=== PATIENT | female | born 1950 | race Caucasian/White ===

== ENCOUNTER 2017-02-25 16:03 | Inpatient (IN) | payer OTHER ==
--- NOTE | ~2017-02-25 | HP ---
History And Physical [address] [place]. [address] NAME: IVANIA GONZALEZ : 48 STATUS : ADM IN [facility]#: [id number] AGE: 66 ADM/REG DATE : 02/25/17 MR#: [id number] REPORT SERV DATE: 02/25/17 DICTATED BY: BERNARDA COMBS DATE: 02/25/17 REPORT STATUS : Draft TRANSCRIBED BY: MODL DATE: 02/25/17 DATE OF ADMISSION: 02/25/2017 HISTORY OF PRESENT ILLNESS: This is a 66-year-old woman with a known history of cardiac disease, who was complaining of an increased heart rate according to her . She was standing at the kitchen counter. He took her blood pressure and reports that it was high, he thinks maybe as high as 199, but is not sure, noticed increased heart rate. The patient slid to the floor and bumped her head against the wall and was unresponsive. CPR was started by the family and went on for at least 20 minutes. EMS was called and continued CPR en route to the hospital. According to the family, she was shocked at least 3 times by EMS. Further shocks were delivered en route to the hospital. Apparently, the patient got a total of 8 mg of epinephrine, 1 mg of atropine, and 1 amp of bicarbonate while en route to the hospital. She had a return of circulation upon arrival to the ER, was given a 2-litre normal saline bolus, 450 mg of amiodarone were given as per EMS. The patient was intubated en route with a 7.5 endotracheal tube. [facility] in [facility], the patient was started on an epinephrine drip, given two more amps of bicarbonate. Fentanyl 50 mcg was given. She was started on Protonix secondary to bloody nasogastric secretions, 300 mg of aspirin was given. The patient was also started on propofol. She was then transferred here for further evaluation, possible hypothermia protocol, and evaluation by Cardiology. ALLERGIES: THE PATIENT HAS NO KNOWN DRUG ALLERGIES. HOME MEDICATIONS: Include metoprolol 12.5 mg 3 times a day, ramipril 10 mg daily, and hydrochlorothiazide 12.5 mg daily. PAST MEDICAL HISTORY: Significant for: 1. Acute inferior wall CO in 2011 and was treated with urgent PCI. At that time, she was stented to the proximal RCA. 2. Perfusion scan done in 2013 in [facility] was negative for ischemia. 3. In 2014, the patient again was taken to the metallurgical laboratory assistant for acute coronary syndrome. At that time, she was found to have a widely patent stent, nonobstructive coronary artery disease, and a normal left ventricular function. 4. She underwent cholecystectomy in 2015. 5. She has a history of obesity. 6. Breast reduction surgery. 7. Hypertension. SOCIAL HISTORY: The patient is retired from [employer]. She is a heavy smoker and has been smoking for greater than 50 years, at least two packs a day if not more. The patient has no history of alcohol abuse. She lives at home with her family. She has four sons and grandchildren and her is still living. FAMILY HISTORY: Significant for coronary artery disease and diabetes in her father, and her mother had a cerebrovascular accident. History And Physical [address] [address] NAME: IVANIA GONZALEZ : [birth year] STATUS : ADM IN [facility]#: [id number] AGE: 66 ADM/REG DATE : 02/25/17 MR#: [id number] REPORT SERV DATE: 02/25/17 DICTATED BY: BERNARDA COMBS DATE: 02/25/17 REPORT STATUS : Draft TRANSCRIBED BY: CORIN DATE: 02/25/17 REVIEW OF SYSTEMS: Could not be obtained from the patient since she is orally intubated, sedated, and unresponsive. PHYSICAL EXAMINATION: VITAL SIGNS: Upon arrival, heart rate was 114. Blood pressure initially was not able to be obtained; currently, it is 167/90 on epinephrine. Respiratory rate is 26 on settings, tidal volume of 550, 100% FiO2, 16 rate, CMV, 5 of PEEP. Temperature upon arrival is 95.4 orally. SKIN: Cool to touch. She is not diaphoretic. HEENT: Pupils are sluggishly reactive, but equal. Sclerae anicteric. Conjunctivae pink. Nasal mucosa within normal limits. Oral mucosa is intubated. Nasogastric tube is in place and is draining dark bloody gastric secretions. NECK: Supple without JVD, lymphadenopathy, or thyromegaly. BREASTS: Symmetrical without any masses. CARDIAC: Reveals a regular rate and rhythm with no significant murmurs. CHEST: Lung exam reveals bilateral crackles. Good and equal chest excursion. ABDOMEN: Obese, nondistended, soft to palpation. Well-healed surgical scars are present beneath the breasts. Bowel sounds are diminished. No organosplenomegaly is appreciated. There is no pain elicited to palpation of the abdomen. RECTAL/GENITAL: Deferred. EXTREMITIES: Without cyanosis, clubbing, or edema. Pulses are palpable, but diminished in the lower extremities and equal. NEUROLOGIC: The patient has positive corneals, positive cough, but does not respond to sternal rub. Toes are equivocal. LABORATORY DATA: Chest x-ray shows good placement of the endotracheal tube and shows bilateral pulmonary vascular congestion. Lab work at [facility] showed a white cell count of 13.6, hemoglobin of 11, troponin of 0.9, AST of 346, SGPT of 407, calcium of 7.5, glucose of 365, creatinine is 1.46, bicarb was 16. ABG initially at [facility] showed a pH of 6.91, a pCO2 of 61, a pO2 of 441, and bicarbonate of 14. EKG here shows a sinus tachycardia with ischemic changes anterolaterally. Lactic acid level is 6.1. White cell count is 17.5, hemoglobin 11, hematocrit 34, platelet count is 238,000. PT/INR and PTT are pending. It appears that the patient does have a urinary tract infection with increased white cell count and leukocyte esterase that is elevated, and we have sent urine culture. Cortisol level is 41. Her ABG here shows a pH of 7.27, pCO2 of 38, pO2 of 303, and bicarbonate of 17. ASSESSMENT AND PLAN: This is a 66-year-old patient with known coronary artery disease, heavy smoking, probable COPD, who presents with yul-dr-rcuxoyct cardiac arrest that was witnessed by her family. Bystander CPR was started until EMS got there. According to further review of the records from [facility], apparently the patient was intubated en route. Initial rhythm was reported as PEA. She got 8 mg of epinephrine, 1 mg of atropine, 1 amp of History And Physical [address] [facility] [place]. [address] NAME: IVANIA GONZALEZ : [birth year] STATUS : ADM IN [facility]#: [id number] AGE: 66 ADM/REG DATE : 02/25/17 MR#: [id number] REPORT SERV DATE: 02/25/17 DICTATED BY: BERNARDA COMBS DATE: 02/25/17 REPORT STATUS : Draft TRANSCRIBED BY: MODAgapito DATE: 02/25/17 bicarbonate, and was defibrillated 10 times. It was mentioned in the report there that the patient has a past medical history of CO with eight past episodes of cardiac arrest, which the family has not substantiated. Her last episode of cardiac arrest was in 2004, so we will need to review records here. In any event, the patient records were reviewed and we have initiated hypothermia protocol. The patient is at risk for anoxic brain injury as well, and is currently in cardiogenic shock. She also is at risk for renal failure. Serial cardiac enzymes have been sent and are pending. Echocardiogram has been ordered, and Dr. Pride, who is covered for Dr. Madsen, has been consulted and is aware of the patient's arrival. She will continue on pressors and those will be titrated to keep the MAP greater than 65. The patient will also be cultured for blood, urine, and sputum to rule out any other infectious etiology of her presentation. Procalcitonin will be checked. She will be started on a heparin drip and continued on aspirin. H and H will be closely followed and may need to be discontinued because of the scant amount of bloody gastric contents, which could have been traumatic from the NG tube placement. The patient's condition is critical. Total time spent with the patient was from 4 p.m. to 7 p.m. for a time of 210 minutes critical care time. The patient also had an arterial line and a femoral line placed that took approximately 30 minutes total, so that leaves 180 minutes of critical care time with 30 minutes for placement of A- line and central line. Code status has been discussed with the family and they will determine whether or not they want further resuscitation should the patient arrest again. /CORIN Bernarda Combs M.D. / [id number] CC: Bernarda Combs M.D.
--- NOTE | ~2017-02-25 | OP ---
Record Of Operation [facility] [address] [address] NAME: IVANIA GONZALEZ : [birth year] STATUS : ADM IN PAT#: [id number] AGE: 66 ADM/REG DATE : 02/25/17 MR#: [id number] REPORT SERV DATE: 02/26/17 DICTATED BY: BERNARDA COMBS DATE: 02/25/17 REPORT STATUS : Draft TRANSCRIBED BY: MODL DATE: 02/25/17 DATE OF PROCEDURE: 02/25/2017 PROCEDURE: Placement of right femoral arterial line. DESCRIPTION OF PROCEDURE: The right groin was prepped and draped in sterile fashion. The right femoral artery was localized using Seldinger technique. Lidocaine 1% was used as a local anesthetic. Large bore needle was inserted into the left femoral artery. Good blood return was obtained. The barrel was removed and a guidewire was threaded through the needle, with removal of the needle on placement of a 12 cm catheter through the guidewire, which was then removed. Good waveform was transduced. The line was sewn in place with 2-0 silk and sterile dressing was applied. /CORIN Bernarda Combs M.D. / [id number] CC: Bernarda Combs M.D.
--- NOTE | ~2017-02-25 | EEG ---
Electroencephalogram [address] [place]. [address] NAME: IVANIA GONZALEZ : 48 STATUS : DIS IN PAT#: [id number] AGE: 66 ADM/REG DATE : 02/25/17 MR#: [id number] REPORT SERV DATE: 02/28/17 DICTATED BY: MATEO RODRIGUES DATE: 02/27/17 REPORT STATUS : Draft TRANSCRIBED BY: MODL DATE: 02/27/17 REFERRING PHYSICIANS: Dr. Jacinta Combs and Dr. Vaz. INTERPRETING PHYSICIAN: Mateo Rodrigues M.D., Neurology. LOCATION OF THE PATIENT: MICU bed 4. REASON FOR EEG: Status post cardiac arrest, rule out anoxic encephalopathy. The patient remained unresponsive on the ventilator. 23 surface electrodes, 10-20 international placement was used. The patient was noted to be comatosed throughout the recording. No response to verbal or painful stimuli was reported. This EEG is consistent with a continuous moderate to higher voltage 5-6 cycles per second located throughout all the leads, most prominently seen in the anterior head regions. No reactivity to painful verbal stimuli was noted during this study. No change in electrical activity was seen during the entire recording. The patient's chopper operator showed heart rate of approximately 100 beats per minute. Respirator artifact was also noted. Photic stimulation did not bring out additional abnormality. No driving response was Gulshan was detected. IMPRESSION: MARKEDLY ABNORMAL EEG CHARACTERIZED BY PRESENCE OF CONTINUOUS THETA RANGE ACTIVITY. THIS EEG MAY BE CONSISTENT WITH A DIAGNOSIS OF THETA COMA. THE PROGNOSIS IS GUARDED TO POOR. CLINICAL CORRELATION IS RECOMMENDED. RENETTA/CORIN Mateo Rodrigues MD / [id number] CC: Jacinta Combs M.D.
--- NOTE | ~2017-02-25 | CN ---
Consultation Report [id number] [place]. [address] NAME: IVANIA GONZALEZ : 48 STATUS : ADM IN PAT#: [id number] AGE: 66 ADM/REG DATE : 02/25/17 MR#: [id number] REPORT SERV DATE: 02/27/17 DICTATED BY: YASMANI RIVERA JR DATE: 02/27/17 REPORT STATUS : Draft TRANSCRIBED BY: MODL DATE: 02/27/17 NEPHROLOGY CONSULTATION DATE OF CONSULTATION: 02/27/[address] Cabrera. REASON: Acute kidney injury. IMPRESSION: 1. Acute kidney injury, anuric variety. 2. Anion gap metabolic acidosis. 3. Trending hyperkalemia. 4. Pre-hospital cardiac arrest. 5. Chronic MAGGIE inhibitor use. 6. Apparent anoxic encephalopathy. PLAN: 1. Bicarbonate drip. Loop diuretics. Not a hemodialysis candidate if there is no neurological function present. 2. Check EEG. 3. Neurology consult pending. HISTORY: 66-year-old female, new to our service, and reports indicate she experienced ejp-do-iovbyhts cardiac arrest, bystander initiated CPR, transported to [facility] and subsequent transfer to tertiary care. There is non- availability of hemodynamic data until she arrived to this facility. In ICU, on ventilator, unresponsive, without sedatives, and clinically she appears to have no neurological function, no Dolls eyes, no pupillary response, no corneal reflex, no response to sternal rub or noxious stimuli, she is breathing above the ventilator, however. Emergency room notes from [facility] indicate she was on ramipril 10 mg daily, and metoprolol. She has a known history of atherosclerotic cardiovascular disease, and has been followed by Dr. Madsen. She has had a remote and inferior wall myocardial infarction treated in 2011 with an urgent percutaneous coronary intervention with an intracardiac stent placed in the proximal right coronary artery. She has had cholelithiasis with chronic cholecystitis. One sided notes indicate nicotine dependence, one-sided notes indicate nonsmoker. She was said to have mild aortic stenosis and she was said to be overweight. She had a laparoscopic cholecystectomy in 2013. Otherwise no significant past medical history was documented. MEDICATIONS: Listed as metoprolol and ramipril. FAMILY HISTORY: Noncontributory. SOCIAL HISTORY: Unclear smoking history. Consultation Report [address] [place]. [address] NAME: IVANIA GONZALEZ : 48 STATUS : ADM IN PAT#: [id number] AGE: 66 ADM/REG DATE : 02/25/17 MR#: [id number] REPORT SERV DATE: 02/27/17 DICTATED BY: YASMANI RIVERA JR DATE: 02/27/17 REPORT STATUS : Draft TRANSCRIBED BY: MODL DATE: 02/27/17 REVIEW OF SYSTEMS: Not available from client. PHYSICAL EXAMINATION: GENERAL: Obese white woman, who is comatose. Skin is warm and dry, color good, no diaphoresis. HEENT: Pupils nonreactive. No scleral icterus. No periorbital edema. Orotracheally intubated. NECK: No carotid bruits heard. No neck vein distention is seen. Trachea is midline. LUNGS: Clear to auscultation anteriorly laterally independently posteriorly. HEART: Tones regular without rub or gallop being appreciated. ABDOMEN: Bowel sounds present. Bruits not heard. Liver edge is not distended. No currently appreciable guarding or tenderness. No suprapubic fullness. Andujar, negligible urine. EXTREMITIES: No edema, well perfused, warm, symmetrically diminished distal pulses. No peripheral cyanosis. SKIN: The integument is intact, turgor is good, rash is not observed. NEUROLOGIC: Neurologically comatose. PSYCHIATRIC: Unable to evaluate. DATA: Chest x-ray shows a fairly normal cardiac silhouette and no significant interstitial edema at this time. Historical creatinine 1.08 at this facility in December of 2016. Entry creatinine 1.76 serially increasing to a value of 3.51 today. Sodium 146, potassium 5.0, chloride 111, CO2 of 9, BUN 50, creatinine 3.5, calcium 6.5, magnesium 2.1, phosphorus 6.7, and albumin 2.5. Transaminases are elevated. Bilirubin is not elevated. CPK is 7800. Troponin 150. TSH slightly elevated. Blood gas, pH 7.31, pCO2 of 22, and PO2 of 84. White count 91148, hemoglobin 10.7, and platelets 149. TTE accomplished yesterday reports left ventricular ejection fraction 45 to 50% with a small left ventricular cavity size and EKG interpreted as sinus rhythm, nonspecific ST-T wave abnormality and a prolonged QT. Thank you for the consultation, we will follow. DF/CORIN Yasmani Rivera Jr, M.D. / [id number] CC: Jacinta Combs M.D. Consultation Report [address] [address] NAME: IVANIA GONZALEZ : 48 STATUS : ADM IN PAT#: [id number] AGE: 66 ADM/REG DATE : 02/25/17 MR#: [id number] REPORT SERV DATE: 02/27/17 DICTATED BY: YASMANI RIVERA JR DATE: 02/27/17 REPORT STATUS : Draft TRANSCRIBED BY: CORIN DATE: 02/27/17 Francis Madsen M.D., F.A.C.C.
--- NOTE | ~2017-02-25 | CN ---
Consultation Report [facility] [address]. [address] NAME: IVANIA GONZALEZ : 48 STATUS : ADM IN [facility]#: [id number] AGE: 66 ADM/REG DATE : 02/25/17 MR#: [id number] REPORT SERV DATE: 02/27/17 DICTATED BY: MATEO RODRIGUES DATE: 02/27/17 REPORT STATUS : Draft TRANSCRIBED BY: MODAgapito DATE: 02/27/17 NEUROLOGICAL EVALUATION DATE OF CONSULTATION: 02/27/2017 LOCATION: Medical ICU. REASON FOR EVALUATION: Status post cardiopulmonary arrest, unresponsive. HISTORY OF PRESENT ILLNESS: This is a 66-year-old female with history of hypertension, history of previous myocardial infarction, history of coronary artery disease, history of two pack per day smoking for over 50 years who was described to have an episode of cardiopulmonary arrest. The patient's family provided history of patient complaining of not feeling well, having high blood pressure, and increased heart rate. The patient apparently slid down against the wall and hit her head against the wall while she was unresponsive. No description of tonic-clonic activity suggestive of seizures was given. The CPR was apparently started at home by her family members and continued by EMS who brought the patient to the [facility] Emergency Room. The patient on the way was shocked x3. In addition the patient heart was shocked en route to the hospital. She received epinephrine, atropine, and bicarb on the way. She had return of spontaneous circulation upon arrival to the ER. She was given bolus of fluids and amiodarone drip. The patient was intubated on the way to the emergency room. From the [facility], the patient was transferred to this facility. PAST MEDICAL HISTORY: As mentioned above. The patient has history of myocardial infarction in 2011. The patient also had history of cardiac stenting to the proximal right CA. In 2014, the patient had cardiac catheterization which showed normal left ventricular function. The patient has history of chronic tobacco abuse, hypertension, surgical history of breast reduction and cholecystectomy in addition to cardiac stenting. ALLERGIES: NO KNOWN ALLERGIES. SOCIAL HISTORY: She smokes two packs of cigarettes per day. There is no history of alcohol use. Patient lives with her family. She has four grown sons. FAMILY HISTORY: Significant history of diabetes, history of stroke in patient's mother. There is history of heart disease in several family members. REVIEW OF SYSTEMS: Impossible to obtain from the patient, was intubated. PHYSICAL EXAMINATION: VITAL SIGNS: The patient was in the intensive care unit intubated on ventilatory support and pressor medications with blood pressure of 74 systolic and 40 diastolic. The patient was Consultation Report [address] [place]. [address] NAME: IVANIA GONZALEZ : 48 STATUS : ADM IN [facility]#: [id number] AGE: 66 ADM/REG DATE : 02/25/17 MR#: [id number] REPORT SERV DATE: 02/27/17 DICTATED BY: MATEO RODRIGUES DATE: 02/27/17 REPORT STATUS : Draft TRANSCRIBED BY: CORIN DATE: 02/27/17 given appropriate medications which raised her blood pressure to 110 systolic. Her respiratory rate was approximately 16. HEAD AND NECK EXAMINATION: Showed head to be normocephalic. There was no evidence of trauma. Auscultation of the neck showed no evidence of bruits. EYE EXAM: Sclerae were not icteric. Conjunctivae were pink. ENT EXAM: Orally intubated, difficult to evaluate. NECK: Supple. CHEST: Symmetrical. LUNGS: Bilateral decreased breath sounds in the bases. Some crackling heard. ABDOMEN: Abdomen was obese, soft, nontender. Postsurgical scars beneath her breasts from past breast reduction surgery. There was no organomegaly. Bowel sounds are difficult to auscultate. EXTREMITIES: There was no clubbing or cyanosis. Peripheral pulses were palpable, diminished throughout. NEUROLOGICAL EXAMINATION: Mental status exam; the patient was intubated, unresponsive/comatose. Did not respond to painful or verbal stimuli. Eyes were mid- position. No dysconjugate gaze was noted. The pupils were 2 to 3 mm equal, sluggishly reactive to light. Corneal reflexes were not present. There is no facial asymmetry on inspection. Motor exam; flaccid upper and lower extremities. Deep tender reflexes were absent throughout. Babinski signs were not elicitable. Sensory exam; no withdrawal to painful stimuli. LABORATORY STUDIES: WBC count 13.6, hemoglobin 11, pH on admission to the emergency room was 6.91, CO2 of 61, PO2 of 441, bicarbonate 14, troponin on admission was 0.9. AST is 346. Glucose 365. Creatinine is 1.46, BUN 16, lactic acid level was 6.1. WBC count 17.5, hemoglobin 11, hematocrit 34, platelet count 230,000. Of note, CT scan of the head was performed, and the patient apparently was unstable to be moved. IMPRESSION: 1. Status post cardiopulmonary arrest, probable anoxic encephalopathy. The patient's EEG done at bedside showed diffuse generalized slowing of activity with no responsiveness to painful verbal stimuli or photic stimulation. Continuous theta range activity was seen, could be suggestive of theta coma. The patient has multiple risk factors for coronary and cerebral vascular disease and an increased risk of a stroke. The patient was placed on hypothermia protocol which currently the patient is post-hypothermia protocol, and the EEG and neurological consultation was requested. Since her admission, the patient's laboratory studies have shown lactate of 11.7, BUN of 50, creatinine 3.51, WBC count of 12.9, hemoglobin 10.7, hematocrit 31.4. PT/INR was 2. The patient's echocardiogram which was performed yesterday showed severe left ventricular hypertrophy, ejection fraction of 50. Chest x-ray showed vascular congestion and atelectases. Troponin level was 149.0, TSH 3.860. This is out of hospital cardiac arrest and despite hypothermia protocol, the patient shows no signs of recover or improvement. With her history of possible head trauma, I would recommend to Consultation Report [address] [place]. [address] NAME: IVANIA GONZALEZ : 48 STATUS : ADM IN [facility]#: [id number] AGE: 66 ADM/REG DATE : 02/25/17 MR#: [id number] REPORT SERV DATE: 02/27/17 DICTATED BY: MATEO RODRIGUES DATE: 02/27/17 REPORT STATUS : Draft TRANSCRIBED BY: MODL DATE: 02/27/[address] scan of the head to rule out any traumatic injury or subdural hematoma if the patient is stable enough to go for CT. 2. Anoxic encephalopathy-current prognosis is poor. Discussed with the patient's and sons patient's condition and prognosis. The family is deciding on code status for this patient. Thank you for allowing us to participate in this patient's care. RENETTA/CORIN Mateo Rodrigues MD / [id number] CC: Jacinta Combs M.D.
--- NOTE | ~2017-02-25 | CN ---
Consultation Report [facility] [address] [place]. [address] NAME: MACY GASTON : 48 STATUS : ADM IN [facility]#: [id number] AGE: 66 ADM/REG DATE : 02/25/17 MR#: [id number] REPORT SERV DATE: 02/26/17 DICTATED BY: FRANCIS MASON DATE: 02/26/17 REPORT STATUS : Draft TRANSCRIBED BY: MODL DATE: 02/26/17 CARDIOVASCULAR CONSULTATION DATE OF CONSULTATION: 02/26/2017 HISTORY OF PRESENT ILLNESS: Ms. Macy Gaston is a 66-year-old female with past medical history significant for coronary artery disease. She was stented by Dr. Madsen (right coronary artery, status post inferior infarct) in 2011. She was transferred here yesterday evening from [facility] Emergency Room where she had presented after a cardiopulmonary arrest. Per the chart, the patient was in the kitchen and had complained of some tachy- palpitations. She then had an apparent syncopal episode bumping her head against the wall and was unresponsive. Bystander CPR was initiated. This was continued until arrival by EMS at the hospital. The patient reportedly received multiple rounds of epinephrine and atropine and intubation before arrival here. REVIEW OF SYSTEMS: Unobtainable. FAMILY HISTORY: Positive for coronary artery disease. PAST MEDICAL HISTORY: As noted above, significant for history of PCI of the right coronary artery by Dr. Madsen in 2011. The patient also has a history of hypertension. She has had previous breast reduction and right pseudoaneurysm repair. She underwent repeat cardiac catheterization in 2014 with a widely patent stent. MEDICATIONS PRIOR TO ADMISSION: See list. ALLERGIES: THE PATIENT HAS NO KNOWN DRUG ALLERGIES. PHYSICAL EXAMINATION: VITAL SIGNS: Blood pressure 118/57 and pulse 70. The patient is currently intubated and on the hypothermia protocol. She is on 7 mcg of Levophed and 1 mcg of epinephrine. NECK: No jugular venous distention, hepatojugular reflux, or carotid bruits. CARDIOVASCULAR: Normal rate with regular rhythm. No murmur, gallop, click, or rub. LUNGS: Revealed scattered rhonchi but no wheezes or rales. EXTREMITIES: Reveals very cool extremities with no edema. LABORATORY AND DIAGNOSTIC DATA: EKG from last night shows sinus tachycardia with no acute injury pattern. There is voltage criteria for left ventricular hypertrophy. There are nonspecific T-wave abnormalities. There is no acute infarct or injury identified. Troponin has increased from 26 to 145. CPK-MB is increased from 94 to 261. BUN and creatinine are 38 and 2.4. Consultation Report [facility] [id number] [place]. [address] NAME: MACY GASTON : 48 STATUS : ADM IN PAT#: [id number] AGE: 66 ADM/REG DATE : 02/25/17 MR#: [id number] REPORT SERV DATE: 02/26/17 DICTATED BY: FRANCIS MASON DATE: 02/26/17 REPORT STATUS : Draft TRANSCRIBED BY: MODL DATE: 02/26/17 ASSESSMENT: 1. Status post cardiopulmonary arrest, etiology unknown. Considerations would be arrhythmia, coronary artery disease, aspiration , etc. 2. History of coronary artery disease, status post percutaneous coronary intervention of the right coronary artery in 2011. 3. Status post prolonged cardiopulmonary resuscitation. 4. Probable underlying chronic obstructive pulmonary disease in a patient with history of two packs per day. PLAN: 1. The patient is currently undergoing rewarming. 2. Continue supportive care including pressors as needed. 3. Continue respiratory support. 4. Echocardiogram is in progress. 5. Likely will need cardiac catheterization at some point. As there is no acute injury pattern on present EKG, I feel like this is best deferred until neurologic status and family wishes are more clearly delineated. I appreciate your consultation on this complex patient. Dr. Madsen and I will follow her closely with you. /CORIN Francis Mason M.D., [facility] / [id number] CC: Jacinta Combs M.D.
--- NOTE | ~2017-02-25 | DS ---
Discharge Summary [facility] [id number] [place]. [address] NAME: IVANIA GONZALEZ : 48 STATUS : DIS IN PAT#: [id number] AGE: 66 ADM/REG DATE : 02/25/17 MR#: [id number] REPORT SERV DATE: 03/21/17 DICTATED BY: BERNARDA COMBS DATE: 03/20/17 REPORT STATUS : Draft TRANSCRIBED BY: MODL DATE: 03/20/17 ADMISSION DATE: 02/25/2017 DISCHARGE DATE: 02/27/2017 DATE OF : 02/27/2017 at 2115 hours. ADMISSION DIAGNOSES: 1. Kvg-bw-ujwzwogb cardiac arrest. 2. Respiratory failure. 3. Known coronary artery disease. 4. Chronic obstructive pulmonary disease. 5. Cardiogenic shock. 6. Metabolic acidosis. 7. Urinary tract infection. 8. Hypertension. DISCHARGE DIAGNOSES: 1. Hbx-pe-trzenuov cardiac arrest. 2. Anoxic brain injury. 3. Acute kidney injury. 4. Progressive metabolic acidosis multifactorial. 5. Chronic obstructive pulmonary disease. CONSULTATIONS DURING THIS HOSPITALIZATION: To Dr. Vaz, Nephrology, to Dr. Rodrigues for Neurology and to Dr. Pride for cardiology covering for Dr. Madsen. For details of the patient's admission please see dictated H and P. HOSPITAL COURSE: This is a 66-year-old patient, who was transferred here from [facility] on after she suffered an fkc-hh-zytgbbnd cardiac arrest. CPR was initiated by the family for at least 20 minutes, EMS was called. En route, the patient was found to have a shockable rhythm, was shocked three times and intubated and received 8 mg of epinephrine, atropine, and 1 amp of bicarb. 2 L bolus of normal saline was given in the emergency room at [facility] in addition to an amiodarone bolus and an amiodarone drip was started. The patient was then transferred here and was started on hypothermia protocol. She was unresponsive and not received any sedation of any sort. Her metabolic derangements were corrected with bicarbonates. She underwent hypothermia protocol, however, this was stopped early on the morning of 02/26/2017 because of arrhythmias, bradycardia, and hypotension. Rewarming was started early. Dr. Pride who was covering for Dr. Madsen was asked to see the patient. In his opinion, the patient had a known history of PCI to the right coronary in the past. After reviewing the chart, he did not know the exact etiology of the patient's arrest and arrhythmia, coronary artery disease in addition to aspiration were considered. Echocardiogram was done and showed marked concentric left ventricular hypertrophy. Systolic function was borderline with an injection fraction of 45% to 50%. No significant wall motion abnormalities were identified. She was also found to have diastolic dysfunction. The patient continued to deteriorate over the following days with worsening renal failure as well as metabolic acidosis and required pressors. Blood in urine cultures Discharge Summary [facility] [id number] [place]. [address] NAME: IVANIA GONZALEZ : 48 STATUS : DIS IN PAT#: [id number] AGE: 66 ADM/REG DATE : 02/25/17 MR#: [id number] REPORT SERV DATE: 03/21/17 DICTATED BY: BERNARDA COMBS DATE: 03/20/17 REPORT STATUS : Draft TRANSCRIBED BY: MODL DATE: 03/20/17 were sent and the urine culture came back positive for E. coli resistant to cefazolin, ampicillin, Unasyn, and Cipro. Blood cultures remain negative. The patient was seen by Dr. Rodrigues of Neurology and again in her opinion the patient's condition pretended poor outcome. This was discussed with the family on several occasions by myself as well as Neurology. Nephrology was also consulted and the patient was deemed not to be a candidate for hemodialysis and was treated conservatively. The patient continued to deteriorate despite aggressive measures and on the afternoon of the 02/27/2017 at 2115 hours. /MODL Bernarda Combs M.D. / [id number] CC: Bernarda Combs M.D.
--- NOTE | ~2017-02-25 | OP ---
Record Of Operation [facility] [address] [place]. [address] NAME: IVANIA GONZALEZ : 48 STATUS : ADM IN PAT#: [id number] AGE: 66 ADM/REG DATE : 02/25/17 MR#: [id number] REPORT SERV DATE: 02/26/17 DICTATED BY: BERNARDA COMBS DATE: 02/25/17 REPORT STATUS : Draft TRANSCRIBED BY: MODL DATE: 02/25/17 DATE OF PROCEDURE: 02/25/2017 PROCEDURE: Placement of right femoral central line. REASON: The patient is in cardiogenic shock and requires pressors. No consent was obtained from the family since this is an urgent situation. DESCRIPTION OF PROCEDURE: The right groin was prepped and draped in sterile fashion. Lidocaine 1% was used for local anesthetic. The right femoral vein was localized using ultrasound technique. Large bore IV was inserted into the right femoral vein with good blood return. A guidewire was then threaded through the needle, which was then removed. The site was dilated and a 20 cm triple-lumen catheter was placed without difficulty with removal of the guidewire. All ports were flushed and had good blood return. Sterile Biopatch was applied and the line was sewn in place with 2-0 silk. /CORIN Bernarda Combs M.D. / [id number] CC: Bernarda Combs M.D.
[~2017-02-25 16:03] MED LIST: ALTACE10 MG PO; ASA5GR PO; ASAB PO; LOP25 PO; PRILOSEC40 MG PO; ZOCOR20 PO
[2017-02-25 16:33] LABS: BE (BASE EXCESS) -9.8 MEQ/L (0 +/- 2.5); HEMOBLOGIN CONTENT 12.8 G/DL (12-16); INSTRUMENT SERIAL # 8083; METHEMOGLOBIN 0.2 % (0-3); MODE CMV; O2 CONTENT 17.6 VOL% (18-24); OPERATOR ID 35188; PCO2 (CO2 TENSION) 47 MMHG (35-45); PO2 (O2 TENSION) 125 MMHG (79-93); SAMPLE Arterial; TIDAL VOLUME 550 ML
[2017-02-25 17:13] LABS: ASCORBIC ACID (UR NOT ORDER) NEG (NEG); BILIRUBIN, URINE NEGATIVE (NEG); KETONE, URINE NEGATIVE (NEG); LEUKOCYTE ESTERASE(NOT OR LARGE (NEG); WBC (NOT ORDERED) (RFLEX) > 182 (0-5)
[2017-02-25 18:29] LABS: CARBOXYHEMOGLOBIN 0.5 % (0-3); HCO3 (ACTUAL BICARBONATE) 17.1 MEQ/L (23-27); HEMOBLOGIN CONTENT 12.6 G/DL (12-16); INSTRUMENT SERIAL # 8083; METHEMOGLOBIN 0.3 % (0-3); MODE CMV; O2 CONTENT 18.3 VOL% (18-24); OPERATOR ID 35188; PCO2 (CO2 TENSION) 38 MMHG (35-45); PO2 (O2 TENSION) 303 MMHG (79-93); SAMPLE Arterial; TIDAL VOLUME 550 ML; pH 7.27 (7.37-7.43)
[2017-02-25] MEDS ORDERED: LOP25 PO (18:30)
[2017-02-25 18:31] LABS: BASOPHILS 0.2 %; BASOPHILS ABSOLUTE 0.04 10/3/uL (0.0-0.16); EOSINOPHILS 0.4 %; EOSINOPHILS ABSOLUTE 0.07 10/3/uL (0.0-0.53); HEMATOCRIT 34.9 % (36.0-48.0); HEMOGLOBIN 11.5 g/dL (12.0-16.0); IMMATURE GRANULOCYTES 1.9 %; IMMATURE GRANULOCYTES ABSOLUTE 0.33 10/3/uL (0.0-0.11); LYMPHOCYTES 17.9 %; LYMPHOCYTES ABSOLUTE 3.13 10/3/uL (0.67-4.30); MANUAL DIFF NO %; MEAN CORPUSCULAR HEMOGLOB 31.5 pg (26.0-34.0); MEAN CORPUSCULAR VOLUME 95.6 fL (80-100); MEAN PLATELET VOLUME 10.4 fL (9.2-13.0); MONOCYTES 3.7 %; MONOCYTES ABSOLUTE 0.64 10/3/uL (0.21-1.20); NEUTROPHILS 75.9 %; NEUTROPHILS ABSOLUTE 13.28 10/3/uL (2.02-8.40); PLATELET COUNT 238 10/3/uL (150-400); RBC DISTRIBUTION WIDTH 13.4 % (12.0-16.0); RED CELL COUNT 3.65 10/6/uL (4.0-5.6); WHITE BLOOD CELLS 17.5 10/3/uL (4.5-10.5)
[2017-02-25] MEDS ORDERED: ALTACE10 MG PO (18:31)
[2017-02-25] MEDS ORDERED: [UNRECOGNIZED DRUG - REMARK] (18:32)
[2017-02-25] MEDS ORDERED: ASAB PO (18:33)
[2017-02-25] MEDS ORDERED: *UNABLE3 (18:34)
[2017-02-25] MEDS ORDERED: HYDROCHLOROT12.5 MG PO (18:38)
[2017-02-25 18:39] LABS: PARTIAL THROMBO TIME 51.2 SEC (22.5-37.2)
[2017-02-25 18:41] LABS: PROTIME (NOT ORD) 22.3 SEC (12.0-14.5)
[2017-02-25 19:05] LABS: PROCALCITONIN 1.05 ng/mL (<0.5)
[2017-02-25 19:21] LABS: CHLORIDE, SERUM 110 MMOL/L (96-112); CK-MB 94.2 NG/ML; CO2 (CARBON DIOXIDE) 25 MMOL/L (24-34); FREE T4 0.99 NG/DL (0.76-1.46); PHOSPHORUS, SERUM 6.6 MG/DL (2.5-4.5); POTASSIUM, SERUM 3.5 MMOL/L (3.5-5.3); SGPT(ALT) 483 U/L (5-65); SODIUM, SERUM 150 MMOL/L (135-148); TOTAL BILIRUBIN 0.3 MG/DL (0-1.2)
[2017-02-25 19:22] LABS: ALBUMIN 2.6 G/DL (3.5-5.0); ALKALINE PHOSPHATASE 101 U/L (45-117); BUN (BLOOD UREA NITROGEN) 27 MG/DL (6-23); CALCIUM, SERUM 6.7 MG/DL (8.5-10.4); CKMB INDEX (NOT ORD) 4.3; CPK 2175 U/L (0-200); CREATININE 1.76 MG/DL (0.55-1.02); FOLATE 18.4 NG/ML (>5.2); GFR AFRICAN AMERICAN 34 ML/MIN (>=60); GFR NON AFRICAN AMERICAN 29 ML/MIN (>=60); GLOBULIN 2.7 G/DL (2.5-4.1); GLUCOSE, SERUM 277 MG/DL (60-99); SGOT(AST) 581 U/L (5-40); TOTAL PROTEIN 5.3 G/DL (6.0-8.5)
[2017-02-26 00:14] LABS: BE (BASE EXCESS) -10.8 MEQ/L (0 +/- 2.5); CARBOXYHEMOGLOBIN 0.3 % (0-3); HCO3 (ACTUAL BICARBONATE) 15.7 MEQ/L (23-27); HEMOBLOGIN CONTENT 11.4 G/DL (12-16); INSTRUMENT SERIAL # 8083; METHEMOGLOBIN 0.1 % (0-3); MODE CMV; PCO2 (CO2 TENSION) 37 MMHG (35-45); PO2 (O2 TENSION) 147 MMHG (79-93); SAMPLE Arterial; TIDAL VOLUME 550 ML; pH 7.24 (7.37-7.43)
[2017-02-26 04:01] LABS: BASOPHILS 0.1 %; BASOPHILS ABSOLUTE 0.01 10/3/uL (0.0-0.16); EOSINOPHILS 0.1 %; EOSINOPHILS ABSOLUTE 0.01 10/3/uL (0.0-0.53); HEMATOCRIT 33.9 % (36.0-48.0); HEMOGLOBIN 11.6 g/dL (12.0-16.0); IMMATURE GRANULOCYTES 0.7 %; IMMATURE GRANULOCYTES ABSOLUTE 0.06 10/3/uL (0.0-0.11); LYMPHOCYTES 10.9 %; LYMPHOCYTES ABSOLUTE 0.96 10/3/uL (0.67-4.30); MEAN CORPUS HGB CONC 34.2 g/dL (32.0-36.0); MEAN CORPUSCULAR HEMOGLOB 31.8 pg (26.0-34.0); MEAN CORPUSCULAR VOLUME 92.9 fL (80-100); MEAN PLATELET VOLUME 10.5 fL (9.2-13.0); MONOCYTES 4.7 %; MONOCYTES ABSOLUTE 0.41 10/3/uL (0.21-1.20); NEUTROPHILS 83.5 %; NEUTROPHILS ABSOLUTE 7.35 10/3/uL (2.02-8.40); RBC DISTRIBUTION WIDTH 13.5 % (12.0-16.0); RED CELL COUNT 3.65 10/6/uL (4.0-5.6)
[2017-02-26 04:03] LABS: MANUAL DIFF NO %; PLATELET COUNT 166 10/3/uL (150-400); WHITE BLOOD CELLS 8.8 10/3/uL (4.5-10.5)
[2017-02-26 04:06] LABS: CARBOXYHEMOGLOBIN 0.5 % (0-3); HCO3 (ACTUAL BICARBONATE) 14.7 MEQ/L (23-27); INSTRUMENT SERIAL # 8083; MODE CMV; O2 CONTENT 16.6 VOL% (18-24); OPERATOR ID 16503; PCO2 (CO2 TENSION) 33 MMHG (35-45); PO2 (O2 TENSION) 109 MMHG (79-93); SAMPLE Arterial; TIDAL VOLUME 550 ML; pH 7.27 (7.37-7.43)
[2017-02-26 04:27] LABS: CHLORIDE, SERUM 111 MMOL/L (96-112); CK-MB 260.8 NG/ML; CREATININE 2.23 MG/DL (0.55-1.02); GFR AFRICAN AMERICAN 26 ML/MIN (>=60); GFR NON AFRICAN AMERICAN 22 ML/MIN (>=60); GLUCOSE, SERUM 311 MG/DL (60-99); SODIUM, SERUM 145 MMOL/L (135-148)
[2017-02-26 04:30] LABS: BUN (BLOOD UREA NITROGEN) 33 MG/DL (6-23); CKMB INDEX (NOT ORD) 4.6; CO2 (CARBON DIOXIDE) 17 MMOL/L (24-34); CPK 5677 U/L (0-200); PHOSPHORUS, SERUM 1.8 MG/DL (2.5-4.5); POTASSIUM, SERUM 2.6 MMOL/L (3.5-5.3)
[2017-02-26 04:33] LABS: CALCIUM, SERUM 6.6 MG/DL (8.5-10.4)
[2017-02-26 08:21] LABS: HEMATOCRIT 32.6 % (36.0-48.0); HEMOGLOBIN 11.1 g/dL (12.0-16.0); MEAN CORPUSCULAR HEMOGLOB 31.8 pg (26.0-34.0); MEAN CORPUSCULAR VOLUME 93.4 fL (80-100); MEAN PLATELET VOLUME 10.6 fL (9.2-13.0); PLATELET COUNT 169 10/3/uL (150-400); RBC DISTRIBUTION WIDTH 13.5 % (12.0-16.0); RED CELL COUNT 3.49 10/6/uL (4.0-5.6); WHITE BLOOD CELLS 9.2 10/3/uL (4.5-10.5)
[2017-02-26 08:22] LABS: MANUAL DIFF YES %
[2017-02-26 08:42] LABS: CHLORIDE, SERUM 112 MMOL/L (96-112); CREATININE 2.38 MG/DL (0.55-1.02); GFR AFRICAN AMERICAN 24 ML/MIN (>=60); GFR NON AFRICAN AMERICAN 20 ML/MIN (>=60); GLUCOSE, SERUM 258 MG/DL (60-99); SODIUM, SERUM 143 MMOL/L (135-148)
[2017-02-26 08:43] LABS: BUN (BLOOD UREA NITROGEN) 38 MG/DL (6-23); CALCIUM, SERUM 6.4 MG/DL (8.5-10.4); PHOSPHORUS, SERUM 2.7 MG/DL (2.5-4.5); POTASSIUM, SERUM 5.1 MMOL/L (3.5-5.3)
[2017-02-26 08:47] LABS: BAND NEUTROPHILS 21 %; IMMATURE GRANS ABSOLUTE (CALC) 0.09 10/3/uL (0.0-0.11); LYMPHOCYTES 22 %; LYMPHOCYTES ABSOLUTE (CALC) 2.02 10/3/uL (0.67-4.30); METAMYELOCYTES 1 %; MONOCYTES 4 %; MONOCYTES ABSOLUTE (CALC) 0.37 10/3/uL (0.21-1.20); NEUTROPHILS ABSOLUTE (CALC) 6.72 10/3/uL (2.02-8.40); PLATELET ESTIMATE ADQ (ADEQUATE); RBC MORPHOLOGY NORM (NORMAL); SEGMENTED NEUTROPHIL (0) 52 %; TOTAL NUCLEATED CELLS 100
[2017-02-26 08:55] LABS: CO2 (CARBON DIOXIDE) 16 MMOL/L (24-34)
[2017-02-26 11:44] LABS: BASOPHILS 0.2 %; BASOPHILS ABSOLUTE 0.02 10/3/uL (0.0-0.16); EOSINOPHILS 0 %; HEMATOCRIT 32.9 % (36.0-48.0); HEMOGLOBIN 11.4 g/dL (12.0-16.0); IMMATURE GRANULOCYTES 0.2 %; IMMATURE GRANULOCYTES ABSOLUTE 0.02 10/3/uL (0.0-0.11); LYMPHOCYTES 14.5 %; LYMPHOCYTES ABSOLUTE 1.22 10/3/uL (0.67-4.30); MEAN CORPUS HGB CONC 34.7 g/dL (32.0-36.0); MEAN CORPUSCULAR HEMOGLOB 32.1 pg (26.0-34.0); MEAN CORPUSCULAR VOLUME 92.7 fL (80-100); MEAN PLATELET VOLUME 10.9 fL (9.2-13.0); MONOCYTES 4.5 %; MONOCYTES ABSOLUTE 0.38 10/3/uL (0.21-1.20); NEUTROPHILS 80.6 %; NEUTROPHILS ABSOLUTE 6.76 10/3/uL (2.02-8.40); PLATELET COUNT 154 10/3/uL (150-400); RBC DISTRIBUTION WIDTH 13.4 % (12.0-16.0); RED CELL COUNT 3.55 10/6/uL (4.0-5.6); WHITE BLOOD CELLS 8.4 10/3/uL (4.5-10.5)
[2017-02-26 11:45] LABS: MANUAL DIFF NO %
[2017-02-26 11:59] LABS: ALBUMIN 2.2 G/DL (3.5-5.0); BUN (BLOOD UREA NITROGEN) 40 MG/DL (6-23); CHLORIDE, SERUM 113 MMOL/L (96-112); CO2 (CARBON DIOXIDE) 16 MMOL/L (24-34); CREATININE 2.44 MG/DL (0.55-1.02); DIRECT BILIRUBIN 0.2 MG/DL (0.0-0.4); GFR AFRICAN AMERICAN 23 ML/MIN (>=60); GFR NON AFRICAN AMERICAN 20 ML/MIN (>=60); INDIRECT BILIRUBIN(NOT ORDER) 0.4 MG/DL (0.1-0.9); SGOT(AST) 634 U/L (5-40); SGPT(ALT) 361 U/L (5-65); SODIUM, SERUM 145 MMOL/L (135-148); TOTAL BILIRUBIN 0.6 MG/DL (0-1.2); TOTAL PROTEIN 4.9 G/DL (6.0-8.5)
[2017-02-26 12:02] LABS: ALKALINE PHOSPHATASE 82 U/L (45-117); CALCIUM, SERUM 6.3 MG/DL (8.5-10.4); GLUCOSE, SERUM 152 MG/DL (60-99); PHOSPHORUS, SERUM 4.2 MG/DL (2.5-4.5); POTASSIUM, SERUM 3.9 MMOL/L (3.5-5.3)
[2017-02-26 12:32] LABS: BE (BASE EXCESS) -13.2 MEQ/L (0 +/- 2.5); CARBOXYHEMOGLOBIN 0.7 % (0-3); HCO3 (ACTUAL BICARBONATE) 13.3 MEQ/L (23-27); HEMOBLOGIN CONTENT 11.6 G/DL (12-16); INSTRUMENT SERIAL # 8083; METHEMOGLOBIN 0.3 % (0-3); MODE CMV; O2 CONTENT 15.6 VOL% (18-24); OPERATOR ID 14382; PCO2 (CO2 TENSION) 33 MMHG (35-45); PO2 (O2 TENSION) 90 MMHG (79-93); SAMPLE Arterial; TIDAL VOLUME 550 ML; pH 7.23 (7.37-7.43)
[2017-02-26 12:36] LABS: CK-MB 297.6 NG/ML
[2017-02-26 12:38] LABS: CKMB INDEX (NOT ORD) 4.1
[2017-02-26 16:17] LABS: BE (BASE EXCESS) -9.3 MEQ/L (0 +/- 2.5); CARBOXYHEMOGLOBIN 0.6 % (0-3); HCO3 (ACTUAL BICARBONATE) 14.7 MEQ/L (23-27); INSTRUMENT SERIAL # 8083; PCO2 (CO2 TENSION) 27 MMHG (35-45); PO2 (O2 TENSION) 73 MMHG (79-93); pH 7.36 (7.37-7.43)
[2017-02-26 16:18] LABS: HEMOBLOGIN CONTENT 11.1 G/DL (12-16); METHEMOGLOBIN 0.3 % (0-3); MODE CMV; O2 CONTENT 14.8 VOL% (18-24); OPERATOR ID 14382; SAMPLE Arterial; TIDAL VOLUME 550 ML
[2017-02-26 20:58] LABS: INSTRUMENT SERIAL # 8083
[2017-02-26 20:59] LABS: BE (BASE EXCESS) -8.9 MEQ/L (0 +/- 2.5); CARBOXYHEMOGLOBIN 0.7 % (0-3); HCO3 (ACTUAL BICARBONATE) 14.6 MEQ/L (23-27); HEMOBLOGIN CONTENT 11.3 G/DL (12-16); METHEMOGLOBIN 0.3 % (0-3); MODE CMV; OPERATOR ID 32193; PCO2 (CO2 TENSION) 25 MMHG (35-45); PO2 (O2 TENSION) 72 MMHG (79-93); SAMPLE Arterial; TIDAL VOLUME 550 ML; pH 7.39 (7.37-7.43)
[2017-02-26 21:22] LABS: CK-MB 263.4 NG/ML; CPK 7015 U/L (0-200)
[2017-02-26 21:23] LABS: CKMB INDEX (NOT ORD) 3.8
[2017-02-26 22:29] LABS: HEMOGLOBIN 10.9 g/dL (12.0-16.0); MEAN CORPUS HGB CONC 35.2 g/dL (32.0-36.0); MEAN CORPUSCULAR HEMOGLOB 31.7 pg (26.0-34.0); MEAN CORPUSCULAR VOLUME 90.1 fL (80-100); MEAN PLATELET VOLUME 11.5 fL (9.2-13.0); PLATELET COUNT 150 10/3/uL (150-400); RBC DISTRIBUTION WIDTH 13.5 % (12.0-16.0); RED CELL COUNT 3.44 10/6/uL (4.0-5.6)
[2017-02-26 22:33] LABS: MANUAL DIFF YES %
[2017-02-26 22:55] LABS: BAND NEUTROPHILS 38 %; IMMATURE GRANS ABSOLUTE (CALC) 0.36 10/3/uL (0.0-0.11); LYMPHOCYTES 19 %; LYMPHOCYTES ABSOLUTE (CALC) 1.71 10/3/uL (0.67-4.30); METAMYELOCYTES 4 %; MONOCYTES 1 %; MONOCYTES ABSOLUTE (CALC) 0.09 10/3/uL (0.21-1.20); NEUTROPHILS ABSOLUTE (CALC) 6.84 10/3/uL (2.02-8.40); PLATELET ESTIMATE ADQ (ADEQUATE); RBC MORPHOLOGY NORM (NORMAL); SEGMENTED NEUTROPHIL (0) 38 %; TOTAL NUCLEATED CELLS 100; TOXIC GRANULATION 1+
[2017-02-26 23:35] LABS: CALCIUM, SERUM 7.1 MG/DL (8.5-10.4); CHLORIDE, SERUM 113 MMOL/L (96-112); GFR AFRICAN AMERICAN 18 ML/MIN (>=60); GFR NON AFRICAN AMERICAN 15 ML/MIN (>=60); GLUCOSE, SERUM 118 MG/DL (60-99); POTASSIUM, SERUM 3.9 MMOL/L (3.5-5.3); SODIUM, SERUM 147 MMOL/L (135-148)
[2017-02-26 23:37] LABS: BUN (BLOOD UREA NITROGEN) 46 MG/DL (6-23); CO2 (CARBON DIOXIDE) 13 MMOL/L (24-34); CREATININE 3.01 MG/DL (0.55-1.02)
[2017-02-27 03:29] LABS: BE (BASE EXCESS) -18.2 MEQ/L (0 +/- 2.5); HCO3 (ACTUAL BICARBONATE) 8.1 MEQ/L (23-27); INSTRUMENT SERIAL # 8083; PCO2 (CO2 TENSION) 21 MMHG (35-45); PO2 (O2 TENSION) 81 MMHG (79-93)
[2017-02-27 03:30] LABS: CARBOXYHEMOGLOBIN 0.6 % (0-3); HEMOBLOGIN CONTENT 9.7 G/DL (12-16); MODE CMV; O2 CONTENT 12.8 VOL% (18-24); SAMPLE Arterial; TIDAL VOLUME 550 ML
[2017-02-27 03:54] LABS: HEMATOCRIT 31.4 % (36.0-48.0); HEMOGLOBIN 10.7 g/dL (12.0-16.0); MANUAL DIFF YES %; MEAN CORPUS HGB CONC 34.1 g/dL (32.0-36.0); MEAN CORPUSCULAR HEMOGLOB 31.3 pg (26.0-34.0); MEAN CORPUSCULAR VOLUME 91.8 fL (80-100); MEAN PLATELET VOLUME 11.8 fL (9.2-13.0); NUCLEATED RED BLOOD CELLS 0.3 /100WBC (0-0); PLATELET COUNT 149 10/3/uL (150-400); RBC DISTRIBUTION WIDTH 13.9 % (12.0-16.0); RED CELL COUNT 3.42 10/6/uL (4.0-5.6); WHITE BLOOD CELLS 12.9 10/3/uL (4.5-10.5)
[2017-02-27 04:26] LABS: ALBUMIN 2.5 G/DL (3.5-5.0); ALKALINE PHOSPHATASE 94 U/L (45-117); BAND NEUTROPHILS 35 %; BUN (BLOOD UREA NITROGEN) 50 MG/DL (6-23); CALCIUM, SERUM 6.5 MG/DL (8.5-10.4); CHLORIDE, SERUM 111 MMOL/L (96-112); CK-MB 238.1 NG/ML; CO2 (CARBON DIOXIDE) 9 MMOL/L (24-34); CPK 7810 U/L (0-200); CREATININE 3.51 MG/DL (0.55-1.02); DIRECT BILIRUBIN 0.4 MG/DL (0.0-0.4); GFR AFRICAN AMERICAN 15 ML/MIN (>=60); GFR NON AFRICAN AMERICAN 13 ML/MIN (>=60); GLUCOSE, SERUM 47 MG/DL (60-99); IMMATURE GRANS ABSOLUTE (CALC) 0.26 10/3/uL (0.0-0.11); INDIRECT BILIRUBIN(NOT ORDER) 0.6 MG/DL (0.1-0.9); LYMPHOCYTES 9 %; LYMPHOCYTES ABSOLUTE (CALC) 1.16 10/3/uL (0.67-4.30); MONOCYTES 3 %; MONOCYTES ABSOLUTE (CALC) 0.39 10/3/uL (0.21-1.20); MYELOCYTES 2 %; NEUTROPHILS ABSOLUTE (CALC) 11.09 10/3/uL (2.02-8.40); PHOSPHORUS, SERUM 6.7 MG/DL (2.5-4.5); SEGMENTED NEUTROPHIL (0) 51 %; SGOT(AST) 619 U/L (5-40); SGPT(ALT) 393 U/L (5-65); SODIUM, SERUM 146 MMOL/L (135-148); TOTAL NUCLEATED CELLS 100; TOTAL PROTEIN 5.3 G/DL (6.0-8.5)
[2017-02-27 04:28] LABS: PLATELET ESTIMATE ADQ (ADEQUATE); RBC MORPHOLOGY NORM (NORMAL)
[2017-02-27 07:09] LABS: BE (BASE EXCESS) -13.9 MEQ/L (0 +/- 2.5); CARBOXYHEMOGLOBIN 0.7 % (0-3); HCO3 (ACTUAL BICARBONATE) 10.6 MEQ/L (23-27); HEMOBLOGIN CONTENT 10.5 G/DL (12-16); INSTRUMENT SERIAL # 8083; METHEMOGLOBIN 0.3 % (0-3); MODE CMV; OPERATOR ID 13624; PCO2 (CO2 TENSION) 22 MMHG (35-45); PO2 (O2 TENSION) 84 MMHG (79-93); SAMPLE Arterial; TIDAL VOLUME 550 ML; pH 7.31 (7.37-7.43)
[2017-02-27] MEDS ORDERED: PRILOSEC40 MG PO (10:34)
[2017-02-27 12:44] LABS: CK-MB 155.5 NG/ML
[2017-02-27 12:46] LABS: CKMB INDEX (NOT ORD) 2.4
[2017-02-27 15:18] LABS: BE (BASE EXCESS) -16.4 MEQ/L (0 +/- 2.5); CARBOXYHEMOGLOBIN 1.7 % (0-3); HCO3 (ACTUAL BICARBONATE) 11.6 MEQ/L (23-27); HEMOBLOGIN CONTENT 8.4 G/DL (12-16); INSTRUMENT SERIAL # 8083; METHEMOGLOBIN 0.3 % (0-3); O2 CONTENT 9.9 VOL% (18-24); PCO2 (CO2 TENSION) 36 MMHG (35-45); PO2 (O2 TENSION) 67 MMHG (79-93); SAMPLE Arterial; TIDAL VOLUME 550 ML; pH 7.13 (7.37-7.43)
[2017-02-27 20:01] LABS: BE (BASE EXCESS) -19.7 MEQ/L (0 +/- 2.5); CARBOXYHEMOGLOBIN 2.3 % (0-3); HCO3 (ACTUAL BICARBONATE) 9.2 MEQ/L (23-27); HEMOBLOGIN CONTENT 7.8 G/DL (12-16); INSTRUMENT SERIAL # 8083; METHEMOGLOBIN 0.2 % (0-3); MODE CMV; O2 CONTENT 9.8 VOL% (18-24); OPERATOR ID 35190; PCO2 (CO2 TENSION) 34 MMHG (35-45); PO2 (O2 TENSION) 83 MMHG (79-93); SAMPLE Arterial; TIDAL VOLUME 550 ML; pH 7.06 (7.37-7.43)
== END 2017-02-27 23:29 | disposition expired | DRG 308 ==
LOC: MIC 16:03
PROVIDERS: Internal Medicine Pulmonary Disease
PROC: 5A1945Z Respiratory Ventilation, 24-96 Consecutive Hours (ICD-10-PCS; principal; 2017-02-25)
PROC: 04HY32Z Insertion of Monitoring Device into Lower Artery, Percutaneous Approach (ICD-10-PCS; 2017-02-25)
PROC: 06HM33Z Insertion of Infusion Device into Right Femoral Vein, Percutaneous Approach (ICD-10-PCS; 2017-02-25)
PROC: B54BZZA Ultrasonography of Right Lower Extremity Veins, Guidance (ICD-10-PCS; 2017-02-25)
DX: I49.01 Ventricular fibrillation (principal); K72.01 Acute and subacute hepatic failure with coma; J96.01 Acute respiratory failure with hypoxia; R57.0 Cardiogenic shock; G93.1 Anoxic brain damage, not elsewhere classified; N39.0 Urinary tract infection, site not specified; J98.11 Atelectasis; E87.2 Acidosis; N17.9 Acute kidney failure, unspecified; I46.9 Cardiac arrest, cause unspecified; J44.9 Chronic obstructive pulmonary disease, unspecified; I10 Essential (primary) hypertension; I25.2 Old myocardial infarction; I25.10 Atherosclerotic heart disease of native coronary artery without angina pectoris; E66.9 Obesity, unspecified; F17.210 Nicotine dependence, cigarettes, uncomplicated; Z95.5 Presence of coronary angioplasty implant and graft; Z90.49 Acquired absence of other specified parts of digestive tract; Z98.890 Other specified postprocedural states; Z79.82 Long term (current) use of aspirin; Z79.899 Other long term (current) drug therapy; Z66 Do not resuscitate
CPT/HCPCS: 31720; 36600; 71010; 74000; 80048; 80053; 80076; 81001; 82150; 82330; 82533; 82550; 82553; 82607; 82746; 82805; 82947; 82962; 83605; 83690; 83735; 84100; 84145; 84439; 84443; 84484; 85025; 85610; 85730; 87040; 87070; 87077; 87086; 87186; 87205; 87641; 92950; 93005; 94002; 94003; 94640; 95816; A9270-GY; C8929; C9113; J0282; J1205; J3010; P9045; Q9957